=== PATIENT | female | born 1965 | race Caucasian/White ===

== ENCOUNTER 2016-07-23 16:44 | Inpatient (IN) | payer OTHER ==
[~2016-07-23] VITALS: Ht 154.9 cm; Wt 96.5 kg
[~2016-07-23 16:44] MED LIST: ADVAIR 250/501 DISK IH; ALTOPREV20 MG PO; ALTOPREV40 MG PO; ASPIR 8181 M1 PO; ASPIRIN EC325 MG PO; ATENOLOL50 MG PO; Bactrim,Septra DS 80 PO; DITROPAN5 MG PO; EFFEXOR XR150 MG PO; FLEXERIL5 MG PO; HUMALOG100 UNIT/1 SQ; LANTUS100 UNIT/2 SQ; LASIX10 MG PO; LASIX20 MG PO; LOVASTATIN40 MG PO; OPANA ER10 MG PO; OXYCONTIN15 MG PO; PERCOCET 5/31 TABLET PO; PERCOCET 7.51 TABLET PO; PRAVACHOL40 MG PO; PRINIVIL40 MG PO; PROTONIX40 MG PO; PROVENTIL,2.5 MG/3 M IH; Percocet 7.5/325,End PO; SEROQUEL100 MG PO; SPIRIVA1 INHALATI IH; TENORMIN25 MG PO; TORADOL10 MG PO; VALIUM10 MG PO; VENTOLIN HFA18 GM IH; ZESTRIL,PRINIVI40 M1 PO; ZOFRAN4 MG PO
[2016-07-23 17:35] LABS: HEMATOCRIT 48.7 % (36.0-46.0); MCH 31.5 PG (29.0-34.0); MCHC 34.5 G/DL (30.0-36.0); MCV 91.2 FL (83-99); MEAN PLAT.VOLUME 9.4 uM^3 (9.5-12.4); PLATELET COUNT 245 K/uL (156-360); RBC DIS.WIDTH-CV 12.5 % (11.8-14.6); RBC DIS.WIDTH-SD 41.5 % (39-53); RED BLOOD COUNT 5.34 M/uL (3.80-5.20); WHITE BLOOD COUNT 13.1 K/uL (4.1-10.2)
[2016-07-23 17:44] LABS: CHLORIDE 102 mEq/L (99-109); POTASSIUM 4.2 mEq/L (3.7-5.4); SODIUM 135 mEq/L (136-147)
[2016-07-23 17:46] LABS: GLUCOSE 275 mg/dL (70-99)
[2016-07-23 17:47] LABS: ANION GAP 13 MEQ/L (2-14)
[2016-07-23 17:49] LABS: GFR ESTIMATE (CALCULATED) > 59 mL/min/
[2016-07-23 17:50] LABS: UREA NITROGEN (BUN) 14 mg/dL (9-23)
[2016-07-23] MEDS ORDERED: PERCOCET 10/1 TABLET PO (17:54)
[2016-07-23 17:56] LABS: TROP-I INTERPRETATION NEGATIVE; TROPONIN-I < 0.01 ng/mL (0.0-0.30)
[2016-07-23] MEDS ORDERED: LISINOPRIL20 MG PO (20:43)
[2016-07-23] MEDS ORDERED: SPIRIVA1 INHALATI IH (20:44)
[2016-07-23] MEDS ORDERED: ASPIRIN325 MG PO (20:47)
[2016-07-23 21:55] VITALS: BP 156/70
[2016-07-24 00:24] LABS: TROP-I INTERPRETATION NEGATIVE; TROPONIN-I < 0.01 ng/mL (0.0-0.30)
[2016-07-24 05:52] VITALS: BP 128/59
[2016-07-24 06:16] LABS: TROP-I INTERPRETATION NEGATIVE; TROPONIN-I < 0.01 ng/mL (0.0-0.30)
[2016-07-24 08:17] LABS: POINT-OF-CARE METER ID UU13113700
[2016-07-24 09:38] LABS: EOSINOPHIL (%) 0 % (0-5); HEMATOCRIT 45.3 % (36.0-46.0); IMMATURE GRANULOCYTE (%) 0.2 % (0.0-0.7); LYMPHOCYTE COUNT 2.1 K/uL (1.0-2.8); MCH 32.5 PG (29.0-34.0); MEAN PLAT.VOLUME 10.4 uM^3 (9.5-12.4); MONOCYTE (%) 9.3 % (3-12); MONOCYTE COUNT 1.6 K/uL (0-0.8); NEUTROPHIL (%) 78.1 % (45-76); NEUTROPHIL COUNT 13.1 K/uL (1.8-6.4); PLATELET COUNT 238 K/uL (156-360); RBC DIS.WIDTH-SD 45.1 % (39-53); RED BLOOD COUNT 4.74 M/uL (3.80-5.20); WHITE BLOOD COUNT 16.7 K/uL (4.1-10.2)
[2016-07-24 09:39] LABS: MCV 95.6 FL (83-99)
[2016-07-24 10:00] VITALS: BP 114/58
[2016-07-24 10:59] LABS: ADD MIUA? YES; BILIRUBIN SMALL; BLOOD NEGATIVE; GLUCOSE (STRIP) 500; KETONES TRACE; LEUKOCYTES TRACE; NITRITE POSITIVE; PH, URINE 5.5 (5-8); PROTEIN (STRIP) TRACE; SPECIFIC GRAVITY 1.038 (1.000-1.030)
[2016-07-24 11:16] LABS: COLOR DK YELLOW ((YELLOW))
[2016-07-24 11:29] LABS: BACTERIA 2+; CASTS NONE SEEN /LPF; CRYSTALS NONE SEEN; EPITHELIAL CELLS 2+; MUCUS 3+; RED BLOOD CELLS 0-5 /HPF (0-5); UCUL ADDED? YES
[2016-07-24 11:40] LABS: Estimated Average Glucose 177 mg/dL (70-123); HEMOGLOBIN A1c (GLYCOHEMOGLOB) 7.8 % HGB (Below 5.7)
[2016-07-24 12:49] VITALS: BP 102/51
[2016-07-24 13:38] LABS: INFLUENZA A VIRAL ANTIGEN NEGATIVE; INFLUENZA B VIRAL ANTIGEN NEGATIVE
[2016-07-24 16:19] VITALS: BP 110/53
[2016-07-24 17:02] LABS: POINT-OF-CARE METER ID UU13113700
[2016-07-24 18:49] LABS: ALKALINE PHOSPHATASE 62 IU/L (3-129); DIRECT BILIRUBIN 0.2 mg/dL (0.0-0.3)
[2016-07-24 19:06] LABS: LIPASE 89 U/L (1.0-51.0)
[2016-07-24 20:58] LABS: POINT-OF-CARE METER ID UU14162513
[2016-07-24 21:18] VITALS: BP 130/62
[2016-07-25 00:32] VITALS: BP 106/53
[2016-07-25 05:01] VITALS: BP 109/54
[2016-07-25 07:07] LABS: EOSINOPHIL (%) 0.1 % (0-5); HEMATOCRIT 40.8 % (36.0-46.0); IMMATURE GRANULOCYTE (%) 0.4 % (0.0-0.7); IMMATURE GRANULOCYTE COUNT 0.1 K/uL; LYMPHOCYTE COUNT 1.2 K/uL (1.0-2.8); MCH 31.2 PG (29.0-34.0); MCHC 32.8 G/DL (30.0-36.0); MCV 95.1 FL (83-99); MONOCYTE (%) 9.9 % (3-12); MONOCYTE COUNT 1.7 K/uL (0-0.8); NEUTROPHIL (%) 82.7 % (45-76); NEUTROPHIL COUNT 14.1 K/uL (1.8-6.4); PLATELET COUNT 198 K/uL (156-360); RBC DIS.WIDTH-CV 13.1 % (11.8-14.6); RBC DIS.WIDTH-SD 45.7 % (39-53); RED BLOOD COUNT 4.29 M/uL (3.80-5.20)
[2016-07-25 07:16] LABS: ALKALINE PHOSPHATASE 57 IU/L (3-129); ANION GAP 8 MEQ/L (2-14); CHLORIDE 100 MEQ/L (99-109); GFR ESTIMATE (CALCULATED) > 59 mL/min/; GLUCOSE 183 mg/dL (70-99); POTASSIUM 3.9 MEQ/L (3.7-5.4); SAMPLE HEMOLYSIS CHECK 0; SAMPLE ICTERIC CHECK 0; SAMPLE LIPEMIA CHECK 0; SODIUM 132 MEQ/L (136-147); TOTAL BILIRUBIN 0.9 MG/DL (0.0-1.0); UREA NITROGEN (BUN) 9 mg/dL (9-23)
[2016-07-25 09:56] LABS: MAGNESIUM 1.7 mg/dl (1.3-2.7)
[2016-07-25 10:48] LABS: POINT-OF-CARE USER ID ADMSLT55
[2016-07-25 12:15] VITALS: BP 91/44
[2016-07-25 16:16] VITALS: BP 79/43
[2016-07-25 16:24] VITALS: BP 101/36
[2016-07-25 23:24] VITALS: BP 101/56
[2016-07-26 03:34] VITALS: BP 101/55
[2016-07-26 07:10] VITALS: BP 96/50
[2016-07-26 07:41] LABS: HEMATOCRIT 35.9 % (36.0-46.0); MCH 31.1 PG (29.0-34.0); MCHC 32.3 G/DL (30.0-36.0); MCV 96.2 FL (83-99); MEAN PLAT.VOLUME 10.1 uM^3 (9.5-12.4); PLATELET COUNT 196 K/uL (156-360); RBC DIS.WIDTH-CV 13.5 % (11.8-14.6); RBC DIS.WIDTH-SD 47.6 % (39-53); RED BLOOD COUNT 3.73 M/uL (3.80-5.20)
[2016-07-26 07:43] LABS: ALKALINE PHOSPHATASE 50 IU/L (3-129); ANION GAP 9 MEQ/L (2-14); CHLORIDE 100 MEQ/L (99-109); GFR ESTIMATE (CALCULATED) > 59 mL/min/; GLUCOSE 142 mg/dL (70-99); POTASSIUM 3.8 MEQ/L (3.7-5.4); SAMPLE HEMOLYSIS CHECK 0; SAMPLE ICTERIC CHECK 0; SAMPLE LIPEMIA CHECK 0; SODIUM 130 MEQ/L (136-147); UREA NITROGEN (BUN) 17 mg/dL (9-23)
[2016-07-26 07:44] LABS: TOTAL BILIRUBIN 0.5 MG/DL (0.0-1.0)
[2016-07-26 07:49] LABS: WHITE BLOOD COUNT 10.5 K/uL (4.1-10.2)
[2016-07-26 11:39] VITALS: BP 101/51
[2016-07-26 15:39] VITALS: BP 93/51
[2016-07-26 19:24] VITALS: BP 95/50
[2016-07-26 23:28] VITALS: BP 100/56
[2016-07-27 03:45] VITALS: BP 104/55
[2016-07-27 07:08] LABS: EOSINOPHIL (%) 1.4 % (0-5); EOSINOPHIL COUNT 0.1 K/uL (0-0.3); HEMATOCRIT 35.1 % (36.0-46.0); IMMATURE GRANULOCYTE (%) 0.3 % (0.0-0.7); LYMPHOCYTE COUNT 1.3 K/uL (1.0-2.8); MCH 31.9 PG (29.0-34.0); MCHC 33.3 G/DL (30.0-36.0); MCV 95.6 FL (83-99); MEAN PLAT.VOLUME 10.1 uM^3 (9.5-12.4); MONOCYTE COUNT 1.2 K/uL (0-0.8); NEUTROPHIL (%) 69.1 % (45-76); PLATELET COUNT 205 K/uL (156-360); RBC DIS.WIDTH-CV 13.2 % (11.8-14.6); RBC DIS.WIDTH-SD 46.2 % (39-53); RED BLOOD COUNT 3.67 M/uL (3.80-5.20); WHITE BLOOD COUNT 8.7 K/uL (4.1-10.2)
[2016-07-27 08:07] LABS: ALKALINE PHOSPHATASE 55 IU/L (3-129); ANION GAP 7 MEQ/L (2-14); CHLORIDE 101 MEQ/L (99-109); GFR ESTIMATE (CALCULATED) > 59 mL/min/; GLUCOSE 138 mg/dL (70-99); POTASSIUM 3.9 MEQ/L (3.7-5.4); SAMPLE HEMOLYSIS CHECK 1; SAMPLE ICTERIC CHECK 0; SAMPLE LIPEMIA CHECK 0; SODIUM 132 MEQ/L (136-147); TOTAL BILIRUBIN 0.5 MG/DL (0.0-1.0); UREA NITROGEN (BUN) 13 mg/dL (9-23)
[2016-07-27 08:21] VITALS: BP 110/54
[2016-07-27 13:47] VITALS: BP 103/56
[2016-07-27 18:21] VITALS: BP 120/60
== END 2016-07-27 18:37 | disposition home health service (06) | DRG 854 ==
LOC: EME 16:44 → EDOF 20:23 → 5WEST 21:33 → 2EASTP 07-24 12:48 → 5WEST 07-25 09:10 → 2EASTP 07-25 12:46
PROVIDERS: Hospitalist; Internal Medicine; Internal Medicine Cardiovascular Disease; Nurse Practitioner Adult Health; Physician Assistant; Thoracic Surgery (Cardiothoracic Vascular Surgery)
PROC: 0FT44ZZ Resection of Gallbladder, Percutaneous Endoscopic Approach (ICD-10-PCS; principal; 2016-07-25)
DX: A41.9 Sepsis, unspecified organism (principal); K81.0 Acute cholecystitis; N39.0 Urinary tract infection, site not specified; I10 Essential (primary) hypertension; J44.9 Chronic obstructive pulmonary disease, unspecified; E78.5 Hyperlipidemia, unspecified; F17.210 Nicotine dependence, cigarettes, uncomplicated; E11.40 Type 2 diabetes mellitus with diabetic neuropathy, unspecified; G47.30 Sleep apnea, unspecified; E87.1 Hypo-osmolality and hyponatremia; R07.89 Other chest pain; N12 Tubulo-interstitial nephritis, not specified as acute or chronic
CPT/HCPCS: 71010; 71020; 71275; 74176; 80048; 80053; 80076; 81003; 82948; 83036; 83605; 83690; 83735; 84484; 85025; 85027; 87040; 87070; 87075; 87077; 87086; 87186; 87205; 87502; 88304; 93005; 94640; 94640 76; 94799; 99202; 99281; 99285; C9113; G0378; J0131; J0360; J0696; J1170; J1644; J1650; J1815; J1885; J2250; J2405; J2710; J3010; J7030; J7050; J7120; S0030